=== PATIENT | female | born 1975 | race African-American/Black ===

== ENCOUNTER 2021-02-26 05:32 | Emergency (ER) | payer MEDICAID ==
[~2021-02-26] VITALS: Ht 157.5 cm; Wt 81.6 kg
[2021-02-26 05:53] VITALS: BP 136/69
--- NOTE | 2021-02-26 06:00 | NUR ---
TO BED AMBULATORY
--- NOTE | 2021-02-26 06:13 | NUR ---
Dr. Clemons examining patient.
[2021-02-26] MEDS ORDERED: ALUMINUM HYD/MAG/SIMETHICONE 30 ML UDC PO ONE (06:25)
--- NOTE | 2021-02-26 06:40 | NUR ---
45 YO/F BIB SELF ACCOMPANIED BY NEPHEW W C/O EPIGASTRIC AND LOWER ABDOMINAL PAIN 3/10 SORE/TENDER INTERMITTENT XSEVERAL MONTHS W RECENT WORSENING RADIATING TO BL BACK. PT REPORTS HX OF GALLBLADDER REMOVAL IN JULY 2020, AND RECENT DIAGNOSIS OF H PYLORI WHICH SHE RELATES TO PAIN. PT ALSO REPORTS COUGH/ SPRE THROAT SINCE WEDNESDAY. PT CURRENTLY TAKING ABX FOR H PYLORI. PT DENIES ANY FEVERS, CHILLS, N/V/D. PT LAYING IN BED LOCKED IN LOWEST POSITION. NEPHEW AT BEDSIDE. BREATHING EVEN AND UNLABORED. NAD NOTED, WILL CONTINUE TO MONITOR. VSS. ERMD AWARE OF PT STATUS. PMH:GERD, GASTRITIS, GALL BLADDER REMOVAL JULY 2020 NK[facility]
--- NOTE | 2021-02-26 06:50 | NUR ---
COVID SWAB COLLECTED FROM PT NARES AND SENT TO LAB.
--- NOTE | 2021-02-26 07:19 | NUR ---
Pt report given to MILKA PADILLA. Transfer of care at this time.
--- NOTE | 2021-02-26 07:29 | NUR ---
ASSUMED PATIENT CARE 45 YEARS OLD FEMALE PRESENTS TO ER WITH ABDOMINAL PAIN NO ACUTE DISTRESS NOTED NO NAUSEA VOMITING WILL CONTINUE TO MONITOR.
[2021-02-26] MEDS ORDERED: KETOROLAC 30 MG/ML VIAL IM ONE (07:35)
[2021-02-26 07:36] LABS: BASOPHILS % (AUTO) 0.2 % (0.0-2.0); EOSINOPHILS # (AUTO) 0.1 K/uL (0-0.4); EOSINOPHILS % (AUTO) 1.1 % (0.0-4.0); HEMATOCRIT 37.7 % (36-48); HEMOGLOBIN 12.4 g/dL (12.0-16.0); LYMPHOCYTES # (AUTO) 0.7 K/uL (2.5-16.5); LYMPHOCYTES % (AUTO) 10.4 % (20.5-51.1); MEAN CORPUSCULAR HEMOGLOBIN 30 pg (27-31); MEAN CORPUSCULAR HGB CONC 33 g/dL (33-37); MEAN CORPUSCULAR VOLUME 92.2 fL (80-94); MONOCYTES # (AUTO) 0.6 K/uL (0.8-1.0); MONOCYTES % (AUTO) 9.1 % (1.7-9.3); NEUTROPHILS # (AUTO) 5.5 K/uL (1.8-7.7); NEUTROPHILS % (AUTO) 79.2 % (42.2-75.2); PLATELET COUNT (AUTO) 275 K/uL (140-450); RED BLOOD CELL COUNT(AUTO) 4.09 MIL/uL (4.20-5.40); RED CELL DISTRIBUTION WIDTH 12.7 % (11.6-13.7); WHITE BLOOD COUNT (AUTO) 6.9 K/uL (4.8-10.8)
[2021-02-26 07:55] LABS: ANION GAP 9.8 (8-16); CREATININE 0.8 mg/dL (0.6-1.3); POTASSIUM 3.8 mmol/L (3.5-5.1)
[2021-02-26 08:43] LABS: ALBUMIN 3.5 g/dL (3.4-5.0); BILIRUBIN,DIRECT 0.1 mg/dL (0.0-0.3); TOTAL BILIRUBIN 0.3 mg/dL (0.0-1.0)
[2021-02-26 09:11] VITALS: BP 130/70
--- NOTE | 2021-02-26 09:14 | NUR ---
PATIENT CONDITION STABLE NO PAIN NO NAUSEA VOMITING D/C HOME WITH INSTRUCTIONS AFTER CARE REVIEWED UNDERSTOOD.
== END 2021-02-26 09:14 | disposition home or self-care (01) ==
LOC: MED 05:32
DX: R10.84 Generalized abdominal pain (principal); M54.59 Other low back pain; J02.9 Acute pharyngitis, unspecified; R05.9 Cough, unspecified; Z98.890 Other specified postprocedural states; Z20.822 Contact with and (suspected) exposure to COVID-19
CPT/HCPCS: 80048; 80076; 81002; 83690; 84703; 85025; 87426; 96372; 99283; J1885